=== PATIENT | male | born 1995 | race Caucasian/White ===

== ENCOUNTER 2023-06-15 07:51 | Outpatient (OUT) | payer BC, SELFPAY ==
--- NOTE | 2023-06-15 07:54 | US_ITS ---
[facility] [id number] Patient Name: WARREN PICKARD MRN: [id number] date: 1995 Sex: M Assigned Patient Location: US Current Patient Location: Accession/Order Number: [id number] Exam Date: 06/15/2023 08:34 Report Date: 06/15/2023 09:13 At the request of: SIMBA SHRESTHA Procedure: US extremity nonvascular LT EXAMINATION: US extremity nonvascular LT HISTORY: left groin pain R10.32 COMPARISON: No relevant comparison available. FINDINGS: Identified in the area the patient's concern, left inguinal region is an area of heterogeneous echotexture measuring 5.2 x 3.8 x 1.4 cm consistent with a hernia containing both fat and a loop of bowel. US/US extremity nonvascular LT IMPRESSION: Left inguinal hernia containing fat and a loop of bowel Electronically authenticated by: ANNETTE BENOIT Date: 06/15/2023 09:13
== END 2023-06-15 07:52 | disposition home or self-care (01) ==
LOC: US 07:51
PROVIDERS: PCP Nurse Practitioner Family; Visit Provider Nurse Practitioner Family
DX: R10.32 Left lower quadrant pain (principal); K40.90 Unilateral inguinal hernia, without obstruction or gangrene, not specified as recurrent
CPT/HCPCS: 76882